=== PATIENT | female | born 1945 | race Caucasian/White ===

== ENCOUNTER 2022-11-17 21:47 | Emergency (ER) | payer OTHER ==
[~2022-11-17] VITALS: Ht 154.9 cm; Wt 70.8 kg
[2022-11-17 21:55] VITALS: BP 160/80
--- NOTE | 2022-11-17 21:58 | NUR ---
TO LOBBY A/W BED AMBULATORY
--- NOTE | 2022-11-18 03:45 | NUR ---
PT AMBULATED TO BED #1
--- NOTE | 2022-11-18 03:50 | NUR ---
Patient BIB by family. C/O Swallow chemical x today. Patient reported, was sipping small amount of breach by accident. Patient denies pain, no nausea, no vomiting, felt itchy on her throat.
--- NOTE | 2022-11-18 03:53 | NUR ---
Dr. Velásquez examining patient.
[2022-11-18] MEDS ORDERED: CHLO473S62 PO (04:00)
[2022-11-18 04:14] VITALS: BP 148/78
--- NOTE | 2022-11-18 04:14 | NUR ---
Patient discharged with v/s stable. Written and verbal after care instructions given and explained. Patient alert, oriented and verbalized understanding of instructions. Ambulatory with steady gait. All questions addressed prior to discharge. ID band removed. Patient advised to follow up with PMD. Rx of Peridex given. Patient educated on indication of medication including possible reaction and side effects. Opportunity to ask questions provided and answered.
== END 2022-11-18 04:14 | disposition home or self-care (01) ==
LOC: MED 21:47
DX: T54.91XA Toxic effect of unspecified corrosive substance, accidental (unintentional), initial encounter (principal); L29.9 Pruritus, unspecified; Y92.89 Other specified places as the place of occurrence of the external cause; Z90.49 Acquired absence of other specified parts of digestive tract
CPT/HCPCS: 99282